=== PATIENT | female | born 1950 | race Caucasian/White ===

== ENCOUNTER 2018-11-04 10:08 | Emergency (ER) | payer BC ==
--- NOTE | 2018-11-04 10:38 | Emergency Department Record ---
History of Present Illness - General Chief Complaint: Rapid heartbeat Stated Complaint: RAPID HEART RATE EPSIODES Time Seen by Provider: 11/04/18 10:23 Source: Patient, Family Mode of Arrival: Ambulatory Limitations: No limitations - History of Present Illness Initial Comments: The patient is here due to developing the feeling her heart was racing for about 10 minutes just prior to presenting to the ER 20 minutes ago. She states she noticed the feeling of the palpitations and her normal HR is around 60. When she had the feeling her watch showed her heart rate was around 90 beats per Min. That did make the patient anxious and due to her age being 68 she decided to come to the ER. The patient denied any Cp, SOB, MARCOS, sweating or nausea during the episodes but may have been mildly lightheaded. Presently she is back to normal and denies any cardiac hx or any CP with exertion or NOWAK. Additionally the patient feels like she may have a UTI. MD Complaint: "Heart racing" Onset/Timin -: Minutes(s) Associated Symptoms: Anxiety, Other - Related Data Home Medications Medication Instructions Recorded Confirmed Last Taken No Home Med [NO HOME MEDS] 11/04/18 11/04/18 Unknown Allergies Allergy/AdvReac Type Severity Reaction Status Date / Time No Known Drug Allergies Allergy Verified 11/04/18 11:10 Travel Screening - Travel/Exposure Within Last 30 Days Have you traveled within the last 30 days?: No - Travel/Exposure Within Last Year Have you traveled outside the [place] in the last year?: No - Additonal Travel Details Have you been exposed to anyone with a communicable illness?: No - Travel Symptoms Symptom Screening: None Review of Systems Constitutional: Denies: Chills, Fever Eyes: Denies: Eye discharge ENT: Denies: Congestion Respiratory: Denies: Cough, Dyspnea Cardiovascular: Reports: Arrhythmia. Denies: Chest pain, Dyspnea on exertion Endocrine: Denies: Fatigue Gastrointestinal: Denies: Nausea Genitourinary: Reports: Dysuria Musculoskeletal: Denies: Arthralgia Skin: Denies: Bruising Past Medical History - SOCIAL HISTORY Smoking Status: Former smoker Alcohol Use: None Drug Use: None - RESPIRATORY Hx Respiratory Disorders: No - CARDIOVASCULAR Hx Cardio Disorders: No - NEURO Hx Neuro Disorders: No - GI Hx GI Disorders: No - Hx Genitourinary Disorders: Yes Hx Bladder Problem: Yes Hx UTI: Yes - ENDOCRINE Hx Endocrine Disorders: No - MUSCULOSKELETAL Hx Musculoskeletal Disorders: Yes Comment:: neck fusions - PSYCH Hx Psych Problems: No - HEMATOLOGY/ONCOLOGY Hx Hematology/Oncology Disorders: No Family Medical History Any Significant Family History?: No Physical Exam - General General Appearance: Alert, Oriented x3, Cooperative, No acute distress - Head Head exam: Atraumatic, Normocephalic, Normal inspection - Eye Eye exam: Normal appearance, PERRL, EOMI - ENT Throat exam: Normal inspection. negative: Tonsillar erythema, Tonsillar exudate - Neck Neck exam: Normal inspection, Full ROM. negative: Tenderness - Respiratory Respiratory exam: Normal lung sounds bilaterally. negative: Respiratory distress - Cardiovascular Cardiovascular Exam: Regular rate, Normal rhythm, Normal heart sounds - GI/Abdominal GI/Abdominal exam: Soft, Normal bowel sounds. negative: Tenderness - Extremities Extremities exam: Normal inspection, Full ROM, Normal capillary refill. negative: Tenderness - Back Back exam: Reports: Normal inspection - Neurological Neurological exam: Alert, Normal gait. negative: Abnormal gait, Motor sensory deficit - Psychiatric Psychiatric exam: negative: Anxious Course Vital Signs 11/04/18 10:11 Temperature 97.9 F Pulse Rate 82 Respiratory 16 Rate Blood Pressure 176/106 Pulse Ox 96 - Reevaluation(s) Reevaluation #1: The patient is doing well at this time. She denies any symptoms or pain or palpitations. I did discuss the normal lab work and need for possible holter monitoring if the work up is negative here today. 11/04/18 11:31 Reevaluation #2: The patient is doing very well at this time. She has had no further palpitations and is resting comfortably. 11/04/18 12:19 Reevaluation #3: 2nd EKG: NSR at 77, neg ST-T changes. 11/04/18 13:34 Reevaluation #4: The patient is doing very well at this time. She is resting comfortably and has had no further episodes while she has been here in the ER over the last 4 hours. She feels ready for home and will see her PCP for recheck. 11/04/18 13:47 Medical Decision Making - Data Complexity MDM Data: EKG Ordered and/or Reviewed - Lab Data Result diagrams: 11/04/18 10:38 11/04/18 10:38 - EKG Data -: EKG Interpreted by Me EKG: No Acute Changes, Normal EKG Disposition Disposition: Discharge Clinical Impression: Intermittent palpitations Disposition: Home, Self-Care Condition: (2) Stable Instructions: Heart Palpitations (ED) Additional Instructions: Please see your family doctor later this week for recheck and please return to the ER for any worsening symptoms. Forms: Patient Portal Access Time of Disposition: 13:45 Quality - Quality Measures Quality Measures: N/A - Blood Pressure Screening View Details: Yes Does Patient Have Any of the Following: No Blood Pressure Classification: Hypertensive Reading Systolic Measurement: 176 Diastolic Measurement: 106 Screening for High Blood Pressure: < First Hypertensive BP, F/U Documented > [ G8950] First Hypertensive Follow-up Interventions: Referral to alternative/primary care provider.
[2018-11-04 10:43] LABS: BASO % 0.6 % (0-6); EOS % 4.6 % (0-6); GRAN % 61.2 % (47-80); HEMATOCRIT 47.3 % (35.0-47.0); HEMOGLOBIN 15.5 gm/dl (11.6-16.0); LYMPH % 26.5 % (16-45); MEAN CELL VOLUME 89.1 fl (81-97); MEAN CORPUSCULAR HEMOGLOBIN 29.2 pg (27-33); MEAN CORPUSCULAR HGB CONC 32.8 g/dl (32-36); MEAN PLATELET VOLUME 10.2 fl (7.4-10.4); MONO % 7.1 % (0-9); PLATELET COUNT 281 K/uL (130-400); RED BLOOD COUNT 5.31 M/uL (3.80-5.40); RED CELL DISTRIBUTION WIDTH 13.2 % (11.5-14.5); WHITE BLOOD COUNT W/O DIFF 8.8 K/uL (4.2-12.2)
[2018-11-04 10:54] LABS: BLOOD UREA NITROGEN 12 mg/dL (8-23); CREATININE 0.8 mg/dL (0.5-0.9); EST GLOMERULAR FILTRATION RATE > 60 mL/min
[2018-11-04 10:55] LABS: TOTAL PROTEIN 7.5 g/dL (6.6-8.7)
[2018-11-04 10:57] LABS: GLUCOSE,RANDOM 135 mg/dL (74-109)
[2018-11-04 11:00] LABS: ALB/GLOB RATIO 1.3 (1.1-1.8); ALBUMIN 4.3 g/dL (4.0-5.0); ALKALINE PHOSPHATASE 78 U/L (35-104); ALT/SGPT 19 U/L (<33); AST/SGOT 18 U/L (10.0-35.0)
[2018-11-04 11:10] LABS: THYROID STIMULATING HORMONE 2.57 uIU/mL (0.270-4.20)
[2018-11-04 11:27] LABS: URINE APPEARANCE CLEAR; URINE BILIRUBIN NEGATIVE (NEGATIVE); URINE BLOOD MODERATE (NEGATIVE); URINE COLOR YELLOW; URINE GLUCOSE (UA) NEGATIVE (NEGATIVE); URINE KETONE NEGATIVE (NEGATIVE); URINE LEUKOCYTE ESTERASE MODERATE (NEGATIVE); URINE NITRITE NEGATIVE (NEGATIVE); URINE PROTEIN NEGATIVE (NEGATIVE); URINE UROBILINOGEN 0.2 E.U./dL (0.20 - 1.00)
[2018-11-04 11:41] LABS: URINE AMORPHOUS SEDIMENT FEW; URINE BACTERIA FEW; URINE EPITHELIAL CELLS 16 - 20 (FEW)
== END 2018-11-04 13:57 | disposition home or self-care (01) ==
LOC: ER 10:08
DX: R00.2 Palpitations (principal); R42 Dizziness and giddiness; Z87.891 Personal history of nicotine dependence
CPT/HCPCS: 80053; 81001; 84443; 84484; 85025; 93005; 93010; 99284

== ENCOUNTER 2019-03-17 19:42 | Emergency (ER) | payer BC ==
--- NOTE | 2019-03-17 20:00 | Emergency Department Record ---
History of Present Illness - General Chief Complaint: Hypertension Stated Complaint: HIGH BLOOD PRESSURE Time Seen by Provider: 03/17/19 19:45 Source: Patient Mode of Arrival: Ambulatory Limitations: No limitations - History of Present Illness Initial Comments: 68 yo female presents with a concern about her blood pressure. The patient states she does not have a formal diagnosis of HTN. She takes her own BP and noted it to be elevated. She rechecked the blood pressure and in continued to elevated. No vision changes, no headaches, no chest pain, no shortness of breath, no edema of the legs. She randomly checks her blood pressure at home. She was not symptomatic at the time. Normally she is about 120/80. She checked it a few times and it remained elevated but without symptoms. Dr Benedicto Gandhi is her PCP. -: Hour(s) Timing: Sudden onset Description: Other (No symptoms) History of Same: Yes History of Trauma: No Severity: Mild Improves With: Nothing Worsens With: Nothing Associated Symptoms: Denies other symptoms - [place] Coma Scale Eye Response: (4) Open spontaneously Motor Response: (6) Obeys commands Verbal Response: (5) Oriented [place] Total: 15 - Related Data Previous Rx's Medication Instructions Recorded Lisinopril [Prinivil] 5 mg PO DAILY #14 tablet 03/17/19 Allergies Allergy/AdvReac Type Severity Reaction Status Date / Time No Known Drug Allergies Allergy Verified 11/04/18 11:10 Review of Systems Constitutional: Denies: Chills, Fever, Malaise, Weakness Eyes: Denies: Eye discharge ENT: Denies: Congestion, Throat pain Respiratory: Denies: Cough Cardiovascular: Denies: Chest pain, Edema, Palpitations, Syncope Endocrine: Denies: Fatigue, Polydipsia, Polyuria Gastrointestinal: Denies: Abdominal pain, Diarrhea, Nausea, Vomiting Genitourinary: Denies: Dysuria, Urgency Musculoskeletal: Denies: Arthralgia, Back pain, Joint swelling, Myalgia Skin: Denies: Bruising, Change in color, Rash Neurological: Denies: Headache, Numbness, Weakness Psychiatric: Denies: Anxiety Hematological/Lymphatic: Denies: Easy bleeding, Easy bruising Past Medical History - SOCIAL HISTORY Smoking Status: Former smoker Drug Use: None - RESPIRATORY Hx Respiratory Disorders: No - CARDIOVASCULAR Hx Cardio Disorders: No - NEURO Hx Neuro Disorders: No - GI Hx GI Disorders: No - Hx Genitourinary Disorders: Yes Hx Bladder Problem: Yes Hx UTI: Yes - ENDOCRINE Hx Endocrine Disorders: No - MUSCULOSKELETAL Hx Musculoskeletal Disorders: Yes Comment:: neck fusions - PSYCH Hx Psych Problems: No - HEMATOLOGY/ONCOLOGY Hx Hematology/Oncology Disorders: No Physical Exam - General General Appearance: Alert, Oriented x3, Cooperative, No acute distress Limitations: No limitations - Head Head exam: Atraumatic, Normal inspection - Eye Eye exam: Normal appearance. negative: Conjunctival injection, Scleral icterus - ENT ENT exam: Normal exam, Mucous membranes moist Ear exam: Normal external inspection Nasal Exam: Normal inspection Mouth exam: Normal external inspection - Neck Neck exam: Normal inspection - Respiratory Respiratory exam: Normal lung sounds bilaterally. negative: Respiratory distres s, Rhonchi, Stridor, Wheezes - Cardiovascular Cardiovascular Exam: Regular rate, Normal rhythm, Normal heart sounds. negative: Diastolic murmur, Systolic murmur Peripheral Pulses: 2+: Radial (R), Radial (L) - GI/Abdominal GI/Abdominal exam: Soft. negative: Tenderness - Rectal Rectal exam: Deferred - exam: Deferred - Extremities Extremities exam: Normal inspection. negative: Pedal edema, Tenderness - Back Back exam: Denies: CVA tenderness (R), CVA tenderness (L) - Neurological Neurological exam: Alert, CN II-XII intact, Normal gait, Oriented X3 - Psychiatric Psychiatric exam: Normal affect, Normal mood. negative: Agitated, Anxious - Skin Skin exam: Dry. negative: Abrasion, Cyanosis Course - Reevaluation(s) Reevaluation #1: 03/17/19 20:02 The patient took valium one hour ago and states she feels relaxed now 03/17/19 20:28 The CBC was reviewed. No acute changes The BMP was reviewed. 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 She is to start a daily morning record of her BP's and take that to her doctor. Medical Decision Making - Lab Data Result diagrams: 03/17/19 20:00 03/17/19 20:00 Disposition Disposition: Discharge Clinical Impression: Elevated blood pressure reading Disposition: Home, Self-Care Condition: (1) Good Instructions: Hypertension (ED) Additional Instructions: Review this ER visit and the tests performed with your family doctor Return to the ER for a recheck if worse, any new concerns or questions Check your blood pressure first thing in the morning, keep a record for a couple weeks and share it with your doctor Prescriptions: Lisinopril [Prinivil] 5 mg PO DAILY #14 tablet Forms: Patient Portal Access Time of Disposition: 20:30 Quality - Quality Measures Quality Measures: N/A - Blood Pressure Screening Does Patient Have Any of the Following: No Blood Pressure Classification: Hypertensive Reading Systolic Measurement: 163 Diastolic Measurement: 104 Screening for High Blood Pressure: < Pre-Hypertensive BP, F/U Documented > [G8950] Pre-Hypertensive Follow-up Interventions: Referral to alternative/primary care provider.
[2019-03-17 20:12] LABS: ABSOLUTE NEUTROPHIL COUNT 5.63; BASO % 0.5 % (0-6); EOS % 8.8 % (0-6); GRAN % 59.3 % (47-80); HEMATOCRIT 46.9 % (35.0-47.0); HEMOGLOBIN 15.1 gm/dl (11.6-16.0); LYMPH % 24.3 % (16-45); MEAN CELL VOLUME 89.2 fl (81-97); MEAN CORPUSCULAR HEMOGLOBIN 28.7 pg (27-33); MEAN CORPUSCULAR HGB CONC 32.2 g/dl (32-36); MEAN PLATELET VOLUME 10.1 fl (7.4-10.4); MONO % 7.1 % (0-9); PLATELET COUNT 295 K/uL (130-400); RED BLOOD COUNT 5.26 M/uL (3.80-5.40); WHITE BLOOD COUNT W/O DIFF 9.5 K/uL (4.2-12.2)
[2019-03-17 20:21] LABS: BLOOD UREA NITROGEN 20 mg/dL (8-23); CREATININE 0.8 mg/dL (0.5-0.9); EST GLOMERULAR FILTRATION RATE > 60 mL/min
[2019-03-17 20:24] LABS: GLUCOSE,RANDOM 113 mg/dL (74-109)
[2019-03-17 20:31] LABS: URINE APPEARANCE CLEAR; URINE BILIRUBIN NEGATIVE (NEGATIVE); URINE BLOOD SMALL (NEGATIVE); URINE COLOR YELLOW; URINE GLUCOSE (UA) NEGATIVE (NEGATIVE); URINE KETONE NEGATIVE (NEGATIVE); URINE LEUKOCYTE ESTERASE TRACE (NEGATIVE); URINE NITRITE NEGATIVE (NEGATIVE); URINE UROBILINOGEN 0.2 E.U./dL (0.20 - 1.00)
[2019-03-17 20:37] LABS: THYROID STIMULATING HORMONE 4.12 uIU/mL (0.270-4.20)
[2019-03-17 20:39] LABS: URINE EPITHELIAL CELLS 0 - 2 (FEW); URINE RBC 0 - 2 (NONE SEEN); URINE WBC 0 - 2 (0-2/hpf)
== END 2019-03-17 21:00 | disposition home or self-care (01) ==
LOC: ER 19:42
DX: R03.0 Elevated blood-pressure reading, without diagnosis of hypertension (principal); Z87.891 Personal history of nicotine dependence
CPT/HCPCS: 80048; 81001; 84443; 85025; 99283

== ENCOUNTER 2019-08-31 22:33 | Emergency (ER) | payer BC ==
[2019-08-31 22:44] LABS: ABSOLUTE NEUTROPHIL COUNT 5.91; BASO % 0.6 % (0-6); EOS % 8.3 % (0-6); GRAN % 54.9 % (47-80); HEMATOCRIT 46.8 % (35.0-47.0); HEMOGLOBIN 15.2 gm/dl (11.6-16.0); MEAN CELL VOLUME 90.5 fl (81-97); MEAN CORPUSCULAR HEMOGLOBIN 29.4 pg (27-33); MEAN CORPUSCULAR HGB CONC 32.5 g/dl (32-36); MEAN PLATELET VOLUME 9.7 fl (7.4-10.4); MONO % 7.2 % (0-9); PLATELET COUNT 309 K/uL (130-400); RED BLOOD COUNT 5.17 M/uL (3.80-5.40); RED CELL DISTRIBUTION WIDTH 13.7 % (11.5-14.5); WHITE BLOOD COUNT W/O DIFF 10.7 K/uL (4.2-12.2)
--- NOTE | 2019-08-31 22:52 | Emergency Department Record ---
History of Present Illness - General Chief Complaint: Numbness Stated Complaint: LT SIDE TINGLING Time Seen by Provider: 08/31/19 22:35 Source: Patient, Family Mode of Arrival: Ambulatory Limitations: No limitations - History of Present Illness Initial Comments: 68 yo female presents with tingling in her left thumb. She states the onset was at 6pm while riding in the car on the way to the [facility]. She states she was worried that the symptoms could be a sign of a heart attack. She denies vision changes, speech changes, coordination changes, dizziness, weakness. She denies chest pain, shortness of breath, nausea, sweating, jaw pain, back pain. She has had the thumb tingling in the past when it was related to cervical spine disease. She subsequently had spinal surgery. She denies any known history of CAD. She denies any recent symptoms that would be consistent with unstable angina. No weakness, fatigue, exertion related symptoms, sweating. No known history of stroke. She has HTN. No history of diabetes. Dr Benedicto Gandhi is her PCP. -: Hour(s) (4.5) Location: Other (thumb on the left hand) Place: Other (riding in a car) Severity: Mild Quality: Tingling Improves With: None Worsens With: None On Anticoagulants: No Context: Other Associated Symptoms: Denies other symptoms Treatments Prior to Arrival: None - [place] Coma Scale Eye Response: (4) Open spontaneously Motor Response: (6) Obeys commands Verbal Response: (5) Oriented [place] Total: 15 - Related Data Home Medications: Home Medications Medication Instructions Recorded Confirmed Last Taken No Home Med [NO HOME MEDS] 08/31/19 08/31/19 Unknown Allergies/Adverse Reactions: Allergies Allergy/AdvReac Type Severity Reaction Status Date / Time No Known Drug Allergies Allergy Verified 11/04/18 11:10 Review of Systems Constitutional: Denies: Chills, Fever, Malaise, Weakness Eyes: Denies: Eye discharge, Photophobia, Vision change ENT: Denies: Congestion, Ear pain, Epistaxis, Throat pain Respiratory: Denies: Cough, Dyspnea, Stridor, Wheezes Cardiovascular: Denies: Arrhythmia, Chest pain, Edema, Murmurs, Orthopnea, Palpitations, Paroxysmal nocturnal dyspnea, Syncope Endocrine: Denies: Fatigue, Polydipsia, Polyuria Gastrointestinal: Denies: Abdominal pain, Diarrhea, Nausea, Vomiting Genitourinary: Denies: Dysuria, Urgency Musculoskeletal: Denies: Arthralgia, Back pain, Myalgia, Neck pain Neurological: Reports: Tingling. Denies: Abnormal gait, Confusion, Headache, Numbness, Tremors, Vertigo, Weakness Psychiatric: Denies: Anxiety Hematological/Lymphatic: Denies: Easy bleeding, Easy bruising, Swollen glands Past Medical History - SOCIAL HISTORY Smoking Status: Former smoker Drug Use: None - RESPIRATORY Hx Respiratory Disorders: No - CARDIOVASCULAR Hx Cardio Disorders: No - NEURO Hx Neuro Disorders: No - GI Hx GI Disorders: No - Hx Genitourinary Disorders: Yes Hx Bladder Problem: Yes Hx UTI: Yes - ENDOCRINE Hx Endocrine Disorders: No - MUSCULOSKELETAL Hx Musculoskeletal Disorders: Yes Comment:: neck fusions - PSYCH Hx Psych Problems: No - HEMATOLOGY/ONCOLOGY Hx Hematology/Oncology Disorders: No Physical Exam - General General Appearance: Alert, Oriented x3, Cooperative, No acute distress, Mild distress Limitations: No limitations - Head Head exam: Atraumatic, Normocephalic, Normal inspection - Eye Eye exam: Normal appearance, PERRL, EOMI. negative: Conjunctival injection, Nystagmus, Scleral icterus - ENT ENT exam: Normal exam, Mucous membranes moist Ear exam: Normal external inspection Nasal Exam: Normal inspection Mouth exam: Normal external inspection - Neck Neck exam: Normal inspection. negative: Full ROM (hx of fusion), Tenderness - Respiratory Respiratory exam: Normal lung sounds bilaterally. negative: Accessory muscle use, Decreased breath sounds, Prolonged expiratory, Respiratory distress, Rhonchi, Stridor, Wheezes - Cardiovascular Cardiovascular Exam: Regular rate, Normal rhythm, Normal heart sounds. negative: Diastolic murmur, Irregular rhythm, Systolic murmur Peripheral Pulses: 2+: Radial (L) - GI/Abdominal GI/Abdominal exam: Soft. negative: Tenderness - Rectal Rectal exam: Deferred - exam: Deferred - Extremities Extremities exam: Normal inspection, Full ROM, Normal capillary refill. negative: Tenderness - Back Back exam: Reports: Full ROM - Neurological Neurological exam: Alert, CN II-XII intact, Normal gait, Oriented X3, Other (NIH 0, no drift up or lower extremities, no ataxia, ). negative: Abnormal gait, Altered, Motor sensory deficit - Psychiatric Psychiatric exam: Normal affect, Normal mood. negative: Agitated, Anxious - Skin Skin exam: Dry, Intact, Normal color, Warm Stroke Assessment - NIH Stroke Scale 1a. Level of Consciousness: (0) Alert 1b. LOC Questions: (0) Answers Correctly 1c. LOC Commands: (0) Performs Tasks Correctly 2. Best Gaze: (0) Normal 3. Visual: (0) No Visual Loss 4. Facial Palsy: (0) Normal Symmetrical Movement 5a. Motor Arm Left: (0) No Drift 5b. Motor Arm Right: (0) No Drift 6a. Motor Leg Left: (0) No Drift 6b. Motor Leg Right: (0) No Drift 7. Limb Ataxia: (0) Absent 8. Sensory: (0) Normal 9. Best Language: (0) No Aphasia 10. Dysarthria: (0) Normal 11. Extinction/Inattention: (0) No Abnormality NIH [place] Scale Total: 0 Course - Reevaluation(s) Reevaluation #1: 08/31/19 22:40 EKG EKG #1: 22:34 Rate: 86 Rhythm: sinus Boaz: L Intervals: normal ST segments: normal Prior: 11/04/2018 No interval changes NIH is 0 The patient points to her left thumb nail as the area of tingling. NO drift, weakness, ataxia. Her examination is normal. The symptoms are very atypical for ACS or acute neurologic event. 08/31/19 23:13 The labs results were reviewed There are no acute significant abnormalities of the CBC There are no acute significant abnormalities of the CMP The troponin is normal after onset at 6pm of the symptoms 08/31/19 23:23 The patient was updated. I do recommend at least one more set of troponin although the symptoms are very atypical for ACS. If negative the plan is for DC home. The symptoms are not consistent with ACS or Stroke. She has prior cervical radiculopathy. This may be a mild early return of her cervical issues. We discussed follow up with her PCP if the symptoms remain mild. We discussed signs and symptoms that should prompt an immediate return as well. Medical Decision Making - Lab Data Result diagrams: 08/31/19 22:40 08/31/19 22:40 Disposition Disposition: Discharge Clinical Impression: Paresthesia Disposition: Home, Self-Care Condition: (1) Good Instructions: Paresthesia (ED) Additional Instructions: Review this ER visit and the tests performed with your family doctor Call your doctor for the next available follow up appointment Return to the ER for a recheck immediately if worse, any new concerns or questions Forms: Patient Portal Access Time of Disposition: 00:43 Quality - Quality Measures Quality Measures: N/A - Blood Pressure Screening Does Patient Have Any of the Following: Active Dx of HTN Blood Pressure Classification: Hypertensive Reading Systolic Measurement: 197 Diastolic Measurement: 109 Screening for High Blood Pressure: Patient Exclusion, Hx of HTN [G9744]
[2019-08-31 22:57] LABS: BLOOD UREA NITROGEN 13 mg/dL (8-23)
[2019-08-31 22:58] LABS: CREATININE 0.8 mg/dL (0.5-0.9); EST GLOMERULAR FILTRATION RATE > 60 mL/min; TOTAL PROTEIN 7.7 g/dL (6.6-8.7)
[2019-08-31 23:00] LABS: GLUCOSE,RANDOM 135 mg/dL (74-109)
[2019-08-31 23:03] LABS: ALB/GLOB RATIO 1.4 (1.1-1.8); ALBUMIN 4.5 g/dL (4.0-5.0); ALKALINE PHOSPHATASE 78 U/L (35-104); ALT/SGPT 23 U/L (<33); AST/SGOT 20 U/L (10.0-35.0)
== END 2019-09-01 00:55 | disposition home or self-care (01) ==
LOC: ER 22:33
DX: R20.2 Paresthesia of skin (principal); I10 Essential (primary) hypertension; Z87.891 Personal history of nicotine dependence
CPT/HCPCS: 80053; 84484; 85025; 93005; 93010; 99284